=== PATIENT | male | born 1955 | race Caucasian/White ===

== ENCOUNTER 2018-04-13 08:50 | Day surgery (SDC) | payer OTHER ==
[2018-04-13] MEDS ORDERED: BENZOCAINE UNIT DOSE SPRAY HURRICAINE MM ONE (08:58)
[2018-04-13] MEDS ORDERED: MIDAZOLAM 2 MG/2 ML VIAL IVP ONE (08:58)
[2018-04-13] MEDS ORDERED: fentaNYL 100 MCG/2 ML INJ IVP ONE (08:58)
[2018-04-13] MEDS ORDERED: NS 500 ML IV ONE (08:58)
--- NOTE | 2018-04-13 10:09 | PDHPUP ---
History & Physical Update H&P update statement: This history and physical update is based on an assessment of the patient which was completed after admission or registration (within 24 hours), but prior to the surgery/procedure. H&P update: H&P reviewed & patient examined, no change in patient's condition since H&P completed
[2018-04-13] MEDS ORDERED: LIDOCAINE 1% 5 ML SDV ONE (10:44)
[2018-04-13] MEDS ORDERED: PROPOFOL 200 MG/20 ML VIAL ONE (10:44)
[2018-04-13] MEDS ORDERED: SUCCINYLCHOLINE CHLORIDE 200 MG/10 ML SYR IVP ONE (10:44)
--- NOTE | 2018-04-13 10:44 | PDANEPAE ---
ANE Past Medical History - Cardiovascular History Hx Hypertension: Yes Hx Arrhythmias: No Hx Chest Pain: No Hx Coronary Artery / Peripheral Vascular Disease: Yes Hx CHF / Valvular Disease: No Hx Palpitations: No - Pulmonary History Hx COPD: No Hx Asthma/Reactive Airway Disease: No Hx Recent Upper Respiratory Infection: No Hx Oxygen in Use at Home: No Hx Sleep Apnea: No - Endocrine History Hx Diabetes: No Hypothyroid: No Hyperthyroid: No Obesity: moderate - Chronic Pain History Chronic Pain: No ANE Review of Systems Review of Systems: ANE Patient History - Allergies Allergies/Adverse Reactions: lactose Allergy (Verified 09/06/15 12:25) - Home Medications Home Medications: Aspirin [Aspirin 81mg (*)] 324 mg PO DAILY 09/04/15 [Last Taken 04/13/18 06:00] Atorvastatin Calcium [Lipitor 40 mg (*)] 40 mg PO DAILY 09/04/15 [Last Taken 06:00] Eliquis 5 mg PO BID 04/13/18 [Last Taken 04/13/18 06:00] - Smoking Hx Smoking Status: Never smoked ANE Labs/Vital Signs - Vital Signs Height: 173 cm Weight: 79.4 kg ANE Physical Exam - Airway Neck exam: decreased ROM Mallampati Score: Class 2 Mouth exam: normal dental/mouth exam - Pulmonary Pulmonary: no respiratory distress - Cardiovascular Cardiovascular: regular rate and rhythym - ASA Status ASA Status: II ANE Anesthesia Plan Anesthesia Plan: GA with mask
--- NOTE | 2018-04-13 11:14 | POSTANESTH ---
Post Anesthetic Evaluation Cardiovascular Status: Similar to Pre-Op Cond Respiratory Status: Normal, Stable Level of Consciousness/Mental Status: Can Participate in Eval Pain Control: Adequate, Prn Tx Ordered Nausea/Vomiting Control: Adequate, Prn Tx Ordered Complications Possibly Related to Anesthesia: None Noted
--- NOTE | 2018-04-13 11:54 | ECHO ---
[email or web address] [address] [address] Main: [phone] Fax: Transesophageal Echocardiography Name: IVORY FLORES MR#: [id number] Study Date: 04/13/2018 Study Time: 10:36 AM Date of : 1955 Age: 63 year(s) Height: ( ) Weight: ( ) BSA: Gender: Male Examination: CALLIE Indication: Eval for Thrombus Image Quality: Contrast: Requested by: Barron Chino Heart Rate: Rhythm: Normal sinus rhythm BP: / Procedure Staff [employer] Ins[employer] Machine Tender: Randolph Vann RDCS Reading Physician: Barron Chino MD Requesting Provider: Barron Chino CALLIE Exam Details Conclusions: Normal global systolic LV function. The ejection fraction is visually estimated to be 55 %. There is a small, focal apical aneurysm. There is no obvious sign of thrombus in the apex of the left venticle.. Negative agitated saline contrast study. Normal appearing atrial septum. There are no significant valvular abnormalities. Measurements: Chambers Valvular Assessment AV/MV Valvular Assessment TV/PV Normal Normal Normal Name Value Range Name Value Range Name Value Range Visual EF: 55 % Additional Measurements: Findings: Left Ventricle: Normal global systolic LV function. The ejection fraction is visually estimated to be 55 %. There is a small, focal apical aneurysm. There is no obvious sign of thrombus in the apex of the left venticle.. Right Ventricle: Normal size right ventricle. Normal RV function. Left Atrium: Patient: IVORY FLORES Study Date: 04/13/2018 Page 1 of 2 10:36 AM Negative agitated saline contrast study. The left atrium is normal in size. Normal appearing atrial septum. Left Atrial Appendage: No thrombus in left appendage. Mitral Valve: The mitral valve is normal in appearance and function. There is no significant mitral valve regurgitation. Aortic Valve: The aortic valve is normal in appearance and function. There is no significant aortic valve regurgitation. Tricuspid Valve: The tricuspid valve is normal in appearance and function. Pulmonic Valve: The pulmonic valve is normal in appearance and function. Aorta: The aorta is normal. Pericardium: No pericardial effusion. l1n (No Signature Object) Patient: IVORY FLORES Study Date: 04/13/2018 Page 2 of 2 10:36 AM [id number]
== END 2018-04-13 12:13 | disposition home or self-care (01) ==
LOC: FCATH 08:50
PROVIDERS: ATTEND Internal Medicine Cardiovascular Disease
PROC: B246ZZ4 Ultrasonography of Right and Left Heart, Transesophageal (ICD-10-PCS; principal; 2018-04-13)
DX: Z03.89 Encounter for observation for other suspected diseases and conditions ruled out (principal); I25.10 Atherosclerotic heart disease of native coronary artery without angina pectoris; I25.2 Old myocardial infarction; Z86.73 Personal history of transient ischemic attack (TIA), and cerebral infarction without residual deficits; Z79.01 Long term (current) use of anticoagulants; Z79.82 Long term (current) use of aspirin; Z86.79 Personal history of other diseases of the circulatory system; E78.5 Hyperlipidemia, unspecified; I10 Essential (primary) hypertension
CPT/HCPCS: J0330; J2704